=== PATIENT | male | born 1950 | race Caucasian/White ===

== ENCOUNTER → 2023-06-27 06:45 | Outpatient (REF) | payer OTHER, SELFPAY ==
[2023-06-27] MEDS: FLUSH (NSS) 1 FLUSH IV (08:45)
[2023-06-27] MEDS: LEXISCAN 0.400000000000000022 MG IV (08:45)
== END ==
LOC: RCS 06:45
PROVIDERS: ATTENDING PHYSICIAN Nurse Practitioner; FAMILY PHYSICIAN Family Medicine
DX: I42.8 Other cardiomyopathies (principal); I50.32 Chronic diastolic (congestive) heart failure; I44.7 Left bundle-branch block, unspecified
CPT/HCPCS: 78452; 93017; A9500; J2785

== ENCOUNTER → 2023-08-09 06:31 | Day surgery (SDC) | payer OTHER, SELFPAY | LOC: GI 06:31 | PROVIDERS: ATTENDING PHYSICIAN Internal Medicine Gastroenterology | DX: Z12.11 Encounter for screening for malignant neoplasm of colon (principal); Z86.010 Personal history of colon polyps; K64.8 Other hemorrhoids; K57.30 Diverticulosis of large intestine without perforation or abscess without bleeding; R12 Heartburn; K31.7 Polyp of stomach and duodenum; K22.81 Esophageal polyp; K29.60 Other gastritis without bleeding; K29.50 Unspecified chronic gastritis without bleeding | CPT/HCPCS: 43251; 43239; G0105; 88305; 88342 ==

== ENCOUNTER → 2024-02-26 07:26 | Outpatient (REF) | payer OTHER, SELFPAY | LOC: RCS 07:26 | PROVIDERS: ATTENDING PHYSICIAN Nuclear Medicine Nuclear Cardiology; FAMILY PHYSICIAN Family Medicine | DX: I50.32 Chronic diastolic (congestive) heart failure (principal); I10 Essential (primary) hypertension | CPT/HCPCS: 93306 ==

== ENCOUNTER 2024-04-23 10:38 | Emergency (ER) | payer OTHER, SELFPAY ==
[2024-04-23 11:38] VITALS: BMI 32.7
[2024-04-23 11:47] VITALS: BP 103/68
[2024-04-23 12:00] VITALS: BP 117/80
[2024-04-23 12:01] LABS: % Basophils 0.3 % (0-2); % Eosinophils 0.6 % (0-6); % Immature Granulocytes 0.3 % (0-0.5); % Lymphocytes 27.1 % (20.5-51.1); % Monocytes 15.8 % (1.7-9.3); % Neutrophils 55.9 % (42.2-75.2); Absolute Lymphocytes 0.8 10^3/uL (1.2-3.4); Absolute Monocytes 0.5 10^3/uL (0.1-0.6); Absolute Neutrophils 1.7 10^3/uL (1.4-6.5); Hematocrit 39.4 % (39.0-52.0); Hemoglobin 13.4 g/dL (13.0-18.0); Mean Corpuscular Hgb 30.7 pg (27.0-31.0); Mean Corpuscular Volume 90.4 fL (80.0-94.0); Mean Platelet Volume 10.5 fL (7.4-10.4); Nucleated Red Blood Cells % 0 % (-); Platelet Count 153 10^3/uL (130-400); Red Blood Cell Count 4.36 10^6/uL (4.70-6.10); Red Cell Dist. Width 13.3 % (11.5-14.5); White Blood Cell Count 3.1 10^3/uL (4.8-10.8)
[2024-04-23 12:16] LABS: ALT (SGPT) 25 U/L (0-50); AST (SGOT) 25 U/L (17-59); Albumin 4.1 g/dl (3.5-5.0); Alkaline Phosphatase 82 U/L (38-126); Blood Urea Nitrogen 18 mg/dl (9-20); Calcium 8.6 mg/dl (8.4-10.2); Carbon Dioxide 24 mmol/L (22-30); Chloride 104 mmol/L (98-107); Estimated Creatinine Clearance 54 ml/min; Glucose 94 mg/dl (70-99); Lipase 101 U/L (23-300); Potassium 3.9 mmol/L (3.5-5.1); Sodium 137 mmol/L (135-145); Total Bilirubin 0.4 mg/dl (0.2-1.3); Total Protein 6.7 g/dl (6.3-8.2); eGFR 57.29
[2024-04-23 12:16] LABS: INR 0.97; PT 13.4 Sec (11.4-14.6)
[2024-04-23] MEDS: NSS 500 IV (12:45)
[2024-04-23] MEDS: PROTONIX IV 40 MG IV (12:45)
[2024-04-23 13:00] VITALS: BP 82/70
--- NOTE | 2024-04-23 13:24 | ED.GENMED ---
History of Present Illness
General
Chief Complaint: Abdominal Symptoms
Source: patient
Exam Limitations: none
Time Seen by Provider: 04/23/24 11:52
Nursing documentation reviewed up to this point in time: agreed with
History of Present Illness
History of Present Illness:
pt is a 74 y/o M with h/o PUD previously
follwoed by dr. valencia from GI
h/o gastric polyp, diverticulosis
here with loose stool the past 2 mo that is black in color
pt says it was initially just 1-2 episodes a day here and there
but then the pat few days was more
and specfiically today pt has had 4 episodes watery coffee grounds stool
he hasn't really had significant abdomianl pain, fever, chills, cp, sob
he is not on AC, no protonix
last endoscopy 07/2023 and pt had large gastric polyp
Past History
Past History
ED Past Medical History: None and Other (LVH, left bundle branch block, GERD, hiatal hernia, colon polyps, degenerative disc disease of the back, left knee replacement, appendectomy, polyarthritis)
ED Past Surgical History: None
Social History
Tobacco: Non-smoker
Alcohol: Occasional
Family History
Family History: Negative Diabetes, Hypertension or CAD
Phy Exam
Physical Exam
Physical Exam:
GENERAL: Alert , in no apparent distress, very well appearing
EYE: pupils equal and reactive
NECK: Supple
ENT: o/p clr, mmm.
CARDIAC: Regular rate and rhythm .
LUNGS: Clear breath sounds bilaterally, no acute respiratory distress, no wheezes/rales/rhonchi
ABDOMEN: Soft, without focal tenderness, no r/g, no cvat, normal bowel sounds
SHIRA: heme TRACE positive, minimal sample; appears light in color
NEUROLOGICAL: Alert and oriented, no focal neuro deficits
SKIN: Warm and dry, skin intact.
MUSCULOSKELETAL: No edema, well perfused. neg izabel's sign
PSYCH: Normal and appropriate interaction.
Course
Orders/Labs/Results
Orders:
Orders
04/23/24 11:39
Type And Crossmatch [Type+Screen] Urgent
Complete Blood Count/With Diff Urgent
Comprehensive Metabolic Panel Urgent
Lipase Urgent
04/23/24 11:42
PT/INR [Prothrombin Time] Urgent
04/23/24 12:28
CT Abd/Pel (IV only)-DH only Urgent
Comment:
Reason For Exam: diarrhea, bleeding
0.9% Sodium Chloride 500 ml [Nss] 500 ml IV BOLUS
Pantoprazole [Protonix IV] 40 mg IV NOW STA
CR Chest - 2 Views Urgent
Comment:
Reason For Exam: h/o chf,
04/23/24 12:43
Lactic Acid Urgent
04/23/24 15:00
Urinalysis Reflex To Culture Urgent
Date Specimen was Collected: 04/23/24
Time Specimen was Collected: 11:37
04/23/24 15:07
Norovirus by PCR Urgent
[facility] Source: Feces/Stool
Specimen Description:
Date Specimen was Collected: 04/23/24
Time Specimen was Collected: 15:05
STOOL [C difficile Antigen & Toxins] Urgent
[facility] Source: Feces/Stool
Specimen Description:
Date Specimen was Collected: 04/23/24
Time Specimen was Collected: 15:05
Stool Culture Urgent
YAH[facility] Source: Feces/Stool
Specimen Description:
Date Specimen was Collected: 04/23/24
Time Specimen was Collected: 15:05
Abnormal Lab Results
04/23/24
11:39
WBC 3.1 L 10^3/uL
(4.8-10.8)
RBC 4.36 L 10^6/uL
(4.70-6.10)
MPV 10.5 H fL
(7.4-10.4)
Absolute Lymphs (auto) 0.8 L 10^3/uL
(1.2-3.4)
Monocytes % 15.8 H %
(1.7-9.3)
04/23/24 11:39
04/23/24 11:39
Vital Signs
Initial and Last Documented VS:
Initial Vital Signs
Temp Pulse Resp Pulse Ox
36.9 C 74 16 96
04/23/24 10:42 04/23/24 10:42 04/23/24 10:42 04/23/24 10:42
Last Documented Vital Signs
Temp Pulse Resp BP Pulse Ox
36.9 C 60 19 110/80 98
04/23/24 10:42 04/23/24 13:14 04/23/24 13:14 04/23/24 15:00 04/23/24 13:00
MDM/Problems Addressed
Differential Diagnosis Includes:
GI bleeding, ulcers, diverticul
MDM/Problems Addressed:
nia adrian
74 y/o M known to dr. valencia
had large 20 mm gastric polyp removed in 07/2023 during endoscopy
diverticulosis, hemorhoids
having about 6 weeks black stools 1-2 episodes daily
then looser the past 2 days and now multiple episodes black stool
thought myabe he is on iron but isn't sure
no AC
nontender abd
stable vitals
bun normal
ct showed some mildly enlarge gallbladder but otherwise neg
he didn't have much of a stool sample to test for me on SHIRA but it was TRACE heme pos
i ordered stool studies but sample did not look like c/w c diff
d/w dr. stewart
given weeks of sypmtoms, normal bun, normal hg
ok to consider outpatient w/u
pt started on protonix
bp documented 80/60 but this was outlier, probably not accurate
bps 110/60s
d/c hoeme
*Critical Care Note
Total Time (30-74mins, 75-104mins- exclusive of procedures): Not Applicable
ED Attending Note
-
Portions of this chart may have been created with voice recognition software.� Occasional wrong word or��sound alike� substitutions may have occurred due to the inherent limitations of voice recognition software.
Discharge Plan
Departure
Patient Disposition: Home (Routine Discharge)
Date of Disposition: 04/23/24
Time of Disposition: 15:29
Patient with high blood pressure during this ER visit?: No
Condition: Fair
Covid-19: Not Applicable
Discharge Problem:
Diarrhea
Instructions: Diarrhea in teens and adults, [place] Diet
Prescriptions:
New
pantoprazole [Protonix] 40 mg tablet,delayed release (DR/EC)
40 mg PO DAILY Qty: 20 0RF
No Action
lansoprazole [Prevacid] 30 MG capsule,delayed release(DR/EC)
30 mg PO DAILY
celecoxib 200 MG capsule
200 mg PO DAILY
tramadol 50 MG tablet
1 - 2 tab PO Q6HPRN PRN (Reason: MILD PAIN) Qty: 60 0RF
furosemide 40 MG tablet
40 mg PO DAILY Qty: 30 3RF
atorvastatin 40 MG tablet
40 mg PO QPM Qty: 30 3RF
spironolactone 12.5 MG tablet
12.5 mg PO DAILY Qty: 30 3RF
aspirin 81 MG tablet,chewable
81 mg PO DAILY Qty: 30 3RF
lisinopril 5 MG tablet
5 mg PO DAILY Qty: 30 3RF
metoprolol succinate 25 MG tablet extended release 24 hr
25 mg PO DAILY Qty: 30 3RF
Referrals:
Sindhu Valencia MD [Active] - Follow up in 5-7 days
Jabier Bell MD [Family Provider] - Follow up in 2-3 days
Activity Restrictions/Additional Instructions:
YOUR STOOL WAS TRACE POSITIVE FOR BLOOD BUT YOUR HEMOGLOBIN WAS NORMAL
YOUR CAT SCAN DID NOT SHOW ANY OBVIOUS CONCERNING FINDINGS
I SPOKE WITH DR. STEWART FROM GI WHO WILL GET A MESSAGE TO DR VALENCIA TO HAVE A FOLLOW UP FOR YOU IN THE OFFICE
IN THE MEANTIME, TRY A BLAND DIET (BANANS, RICE, APPLESAUCE, TOAST) TO HELP WITH DIARRHEA
DRINK FLUIDS TO STAY HYDRATED
TAKE PROTONIX STARTING TOMORROW 40 MG ONCE IN THE MORNING ON AN EMPTY STOMACH AND WAIT 1 HOUR BEFORE EATING ANYTHING
MAKE SURE TO RETURN FOR: WORSENING DIARRHEA, DEHYDRATION, WEAKNESS, BLOODY STOOL, PASSING OUT OR ANY CONCERNS.
Interventions
Interventions:
*Risk Screen - Suicide Last Done: 04/23/24 10:42
*General Assessment Last Done: 04/23/24 11:38
*Neglect/Abuse Screening Last Done: 04/23/24 10:42
*ED- Fall Risk Assessment Last Done: 04/23/24 11:38
*ED COVID-19 Vaccine History Last Done: 04/23/24 11:38
*Nursing Disposition Last Done: 04/23/24 15:47
HH-Vgvykp-Kgwhnitrjo Assessment Last Done: 04/23/24 11:38
Discharge Date and Time
Discharge Date/Time: 04/23/24 15:47
Print Language: [place]
[2024-04-23 14:58] VITALS: BP 100/76
[2024-04-23 15:00] VITALS: BP 110/80
[2024-04-23 15:23] LABS: Urine Albumin Negative (Neg - Trace); Urine Bilirubin Negative (Negative); Urine Character Clear (Clear); Urine Color Yellow; Urine Glucose Negative (Negative); Urine Ketone Negative (Negative); Urine Leukocyte Negative (Negative); Urine Nitrite Negative (Negative); Urine Occult Blood Negative (Negative); Urine Urobilinogen Negative (Neg - 1+)
== END 2024-04-23 15:47 | disposition home or self-care (01) ==
LOC: EMR 10:38
PROVIDERS: Physician Assistant; EMERGENCY PHYSICIAN Student in an Organized Health Care Education/Training Program; FAMILY PHYSICIAN Family Medicine
DX: R19.7 Diarrhea, unspecified (principal); I44.7 Left bundle-branch block, unspecified; K21.9 Gastro-esophageal reflux disease without esophagitis; K44.9 Diaphragmatic hernia without obstruction or gangrene; I50.9 Heart failure, unspecified; Z86.0100 Personal history of colon polyps, unspecified; Z87.11 Personal history of peptic ulcer disease; Z90.49 Acquired absence of other specified parts of digestive tract; Z96.652 Presence of left artificial knee joint
CPT/HCPCS: 99284; 96374; 71046; 74177; 80053; 81003; 83605; 83690; 85025; 85610; 86850; 86900; 86901; 87045; 87046; 87324; 87427; 87449; 87798; Q9967

== ENCOUNTER 2024-06-16 06:19 | Day surgery (SDC) | payer OTHER, SELFPAY | END 2024-06-16 12:18 | disposition home or self-care (01) | LOC: GI 06:19 | PROVIDERS: ATTENDING PHYSICIAN Internal Medicine Gastroenterology | DX: R12 Heartburn (principal); K44.9 Diaphragmatic hernia without obstruction or gangrene; K31.7 Polyp of stomach and duodenum; K31.89 Other diseases of stomach and duodenum | CPT/HCPCS: 43239; 88305; 88342 ==

== ENCOUNTER → 2025-02-16 08:16 | Outpatient (REF) | payer OTHER, SELFPAY | LOC: RAD 08:16 | PROVIDERS: ATTENDING PHYSICIAN Family Medicine; FAMILY PHYSICIAN Family Medicine | DX: R31.9 Hematuria, unspecified (principal) | CPT/HCPCS: 76770 ==